=== PATIENT | female | born 1935 | race Caucasian/White ===

== ENCOUNTER 2016-12-06 00:15 | Inpatient (IN) | payer MEDICARE, OTHER ==
[~2016-12-06] VITALS: Ht 134.6 cm; Wt 45.4 kg
[2016-12-06 00:51] LABS: *BILIRUBIN,URIN NEGATIVE (NEGATIVE); *BLOOD, URINE NEGATIVE (NEGATIVE); *CLARITY,URINE CLEAR (CLEAR); *COLOR,URINE YELLOW (YELLOW); *KETONES,URINE NEGATIVE (NEGATIVE); *PROTEIN,URINE 2+ (NEGATIVE); *UROBILINOGEN,URINE 0.2 E.U./dl (NORMAL); LEUKOCYTE ESTERASE ,URINE 1+ (NEGATIVE); NITRITE, URINE NEGATIVE (NEGATIVE); PH,URINE 5.5 (5.0-8.0); UGLUCOSE NEGATIVE (NEGATIVE)
[2016-12-06] MEDS ORDERED: SENN-167 PO (00:51)
[2016-12-06] MEDS ORDERED: AMIN30LI27 PO (00:51)
[2016-12-06] MEDS ORDERED: METO50TA3 PO (00:51)
[2016-12-06] MEDS ORDERED: ACET-2154 PO (00:51)
[2016-12-06] MEDS ORDERED: LACT1CAP61 PO (00:51)
[2016-12-06] MEDS ORDERED: CYAN10009 PO (00:51)
[2016-12-06] MEDS ORDERED: TEMA7.5C PO (00:51)
[2016-12-06] MEDS ORDERED: MAGN400O6 PO (00:51)
[2016-12-06] MEDS ORDERED: MIRT15TA PO (00:51)
[2016-12-06] MEDS ORDERED: ALBU0.63 IH (00:51)
[2016-12-06] MEDS ORDERED: QUET25TA PO (00:51)
[2016-12-06] MEDS ORDERED: BISA-79 PO (00:51)
[2016-12-06] MEDS ORDERED: MULT1TAB11 PO (00:51)
[2016-12-06] MEDS ORDERED: IPRA3AMP IH (00:51)
[2016-12-06] MEDS ORDERED: DOCU-141 PO (00:51)
[2016-12-06] MEDS ORDERED: NA P133E RC (00:51)
[2016-12-06] MEDS ORDERED: MAG355OR18 PO (00:51)
[2016-12-06 00:54] LABS: BASOPHILS % (AUTO) 0.3 % (0.0-2.0); EOSINOPHILS # (AUTO) 0.1 K/uL (0.0-0.7); HEMATOCRIT 41.3 % (37-47); HEMOGLOBIN 13.2 G/DL (12.0-16.0); LYMPHOCYTES # (AUTO) 1.2 K/UL (0.8-4.8); LYMPHOCYTES % (AUTO) 15.3 % (20.5-51.5); MEAN CORPUSCULAR HEMOGLOBIN 24.1 UUG (27.0-31.0); MEAN CORPUSCULAR HGB CONC 32 g/dL (32.0-37.0); MEAN CORPUSCULAR VOLUME 75.4 FL (81.0-99.0); MONOCYTES # (AUTO) 0.5 K/UL (0.1-1.30); MONOCYTES % (AUTO) 6.3 % (0.0-11.0); NEUTROPHILS # (AUTO) 6.1 K/UL (1.8-8.9); NEUTROPHILS % (AUTO) 77.1 % (38.5-71.5); PLATELET COUNT (AUTO) 328 K/UL (150-450); RED BLOOD CELL COUNT(AUTO) 5.48 MIL/UL (4.2-5.4); WHITE BLOOD COUNT (AUTO) 7.9 K/UL (4.0-11.2)
[2016-12-06 00:58] LABS: *AMPHETAMINE, URINE NEGATIVE (NEGATIVE); *BARBITURATE, URINE NEGATIVE (NEGATIVE); *CANNABINOID, URINE NEGATIVE (NEGATIVE); *COCCAINE, URINE NEGATIVE (NEGATIVE); *OPIATE, URINE NEGATIVE (NEGATIVE); *PHENCYCLIDINE SCREEN,URINE NEGATIVE (NEGATIVE)
--- NOTE | 2016-12-06 01:00 | NUR ---
Attempted to check patient belongings for inventory, patient refused for staff to check 5 purple bags full of belongings. increasingly agitated. Education provided, attempted x3. Patient still refused, noted with screaming episodes.
[2016-12-06 01:04] LABS: CARBON DIOXIDE 27 mmol/L (21-32); CHLORIDE 105 mmol/L (98-107); CREATININE 1.1 mg/dL (0.6-1.3); GLUCOSE 109 mg/dL (74-106); UREA NITROGEN, BLOOD 29 mg/dL (7-18)
[2016-12-06 01:06] LABS: RBC,URINE 0-3 /HPF (0-3)
[2016-12-06 01:07] LABS: BACTERIA,URINE FEW /HPF (NONE SEEN); SQUAMOUS EPITHELIAL CELL,UR FEW /HPF (NONE SEEN); WBC,URINE 20-50 /HPF (0-3)
[2016-12-06 01:08] LABS: ETHANOL < 3 MG/DL (0-0)
[2016-12-06 01:09] LABS: ALANINE AMINOTRANSFERASE 16 U/L (14-59); ALKALINE PHOSPHATASE 75 U/L (50-136); ASPARTATE AMINOTRANSFERASE 16 U/L (15-37); BILIRUBIN,DIRECT 0.1 mg/dL (0.0-0.2); BILIRUBIN,TOTAL 0.4 mg/dL (0.2-1.0); TOTAL PROTEIN, SERUM 8.2 g/dL (6.4-8.2)
[2016-12-06 01:16] LABS: ACETAMINOPHEN < 2.0 ug/mL (10-30)
--- NOTE | 2016-12-06 01:25 | NUR ---
Patient cleared by Dr Waite for MHU admission.
[2016-12-06] MEDS ORDERED: CEPHALEXIN MONOHYDRATE 500 MG CAPSULE PO ONE (01:30)
--- NOTE | 2016-12-06 01:36 | NUR ---
Confirmed U medical clearance with MD, per MD patient is cleared. No further concern noted.
[2016-12-06] MEDS ORDERED: CEPHALEXIN MONOHYDRATE 500 MG CAPSULE ONE (01:37)
--- NOTE | 2016-12-06 01:46 | NUR ---
Pt. admitted to MHU , under care of Dr. Valadez/[facility] MD Carcamo. Belongs List completed to best of ability due to increasing patient agitation. Patient has multiple episode of screaming and stating for staff to cease attempting to open belongings bags. 2 RN witnesses present during Episode. Aida Rn/Sb RN. MHU RN aware of patient BLE chronic wound, aware to complete photograph on admitting unit MHU per ER policy.
--- NOTE | 2016-12-06 02:30 | NUR ---
Admitted this 81 y/o female patient Dx. Psychosis. Awake alert, oriented & quiet, no SOB denies chest pain. Multiple shopping bags w/ personal belongings noted. Patient allowed the staff to open her belongings, have her bags checked & seen. See personal belonging list. Complaining of bilateral leg discomfort but refused to take pain medication. Assisted to the bathroom, sponge bath provided. Wound assessment done, bilateral leg wound noted. Patient is very cooperative w/ staff & care/treatment (see wound photograph in chart). Hydrogel applied & covered it w/ Imtiaz. For wound consult in AM. Kept patient comfortable. Will continue to monitor.
[2016-12-06] MEDS ORDERED: MAGNESIUM HYDROXIDE 30 ML LIQUID UDC PO PRN ×2 (02:45→13:45)
[2016-12-06] MEDS ORDERED: LORAZEPAM 0.5 MG TABLET PO PRN (02:45)
[2016-12-06] MEDS ORDERED: ACETAMINOPHEN 325 MG TABLET PO PRN ×2 (02:45→13:45)
[2016-12-06] MEDS ORDERED: TEMAZEPAM 7.5 MG CAPSULE PO PRN (02:45)
[2016-12-06] MEDS ORDERED: MAG HYDROX/AL HYDROX/SIMETH 30 ML LIQUID UDC PO PRN ×2 (02:45→13:45)
--- NOTE | 2016-12-06 06:17 | NUR ---
Patient remains asleep at this time. Safety observed.
--- NOTE | 2016-12-06 07:15 | NUR ---
Patient awake now & hyperverbal, complaining of her big diaper she's wearing on. Report given to day shift RN.
[2016-12-06 07:30] VITALS: BP 134/72
--- NOTE | 2016-12-06 07:39 | NUR ---
Latest accucheck 143 post orange juice intake. Patient not happy at this time.
--- NOTE | 2016-12-06 11:54 | NUR ---
Initial discharge instructions: Pt resides at [facility] [[address] [place], [place]].Spoke with Michael at the facility who stated they are unsure if the pt may return.Per pt,she would like to placed at an assisted living facility,however she receives a low amount of SSI.Pt declined for daughter,Rosemary Santacruz [phone] to be contacted at this time.SW will speak with pt and MD regarding appropriate discharge plans.SW will form a safe and proper discharge.
[2016-12-06] MEDS ORDERED: FLEET ENEMA 133 ML BOTTLE RC PRN (13:45)
[2016-12-06] MEDS ORDERED: BISACODYL 5 MG TABLET.DR PO PRN (13:45)
[2016-12-06] MEDS ORDERED: IPRATROPIUM BROMIDE 0.5 MG/2.5 ML NEBU NEB PRN (14:00)
[2016-12-06] MEDS ORDERED: ALBUTEROL SULFATE 1.25 MG/3 ML NEBU NEB PRN (14:00)
[2016-12-06 16:01] VITALS: BP 123/70
[2016-12-06] MEDS: DOCUSATE SODIUM 100 MG CAPSULE PO SCH (17:00)
[2016-12-06] MEDS: PROTEIN SUPPLEMENT (PROSTAT) 30 ML LIQUID PO SCH (17:00)
[2016-12-06] MEDS ORDERED: Medication Not On Formulary EA (Amino Acids/Protein Hydrolys (Pro-Stat Sugar Free Liquid PO SCH (17:00)
[2016-12-06] MEDS: OLANZAPINE ZYDIS 5 MG TAB.RAPDIS PO SCH (17:00)
[2016-12-06 20:00] VITALS: BP 153/91
[2016-12-06] MEDS: SENNOSIDES 1 TABLET PO SCH (20:58)
[2016-12-06] MEDS: METOPROLOL TARTRATE 50 MG TABLET PO SCH (20:58)
[2016-12-07 07:30] VITALS: BP 117/82
--- NOTE | 2016-12-07 07:41 | NUR ---
GPS/RN- Patient received sitting up in chair in her room, alert and oriented to self and place. irritable , guarded. patient redirected, easily agitated. continue to monitor
[2016-12-07] MEDS: PROTEIN SUPPLEMENT (PROSTAT) 30 ML LIQUID PO SCH ×2 (08:00→17:00)
[2016-12-07] MEDS: CYANOCOBALAMIN 1,000 MCG TABLET PO SCH (09:00)
[2016-12-07] MEDS: MULTIVIT, IRON, MIN NO. 8, FA TABLET PO SCH (09:00)
[2016-12-07] MEDS: OLANZAPINE ZYDIS 5 MG TAB.RAPDIS PO SCH ×2 (09:00→17:00)
[2016-12-07] MEDS: DOCUSATE SODIUM 100 MG CAPSULE PO SCH ×2 (09:00→17:00)
[2016-12-07] MEDS ORDERED: Medication Not On Formulary EA (Multivitamins W-Minerals (Multivitamin With Minerals) 1 PO SCH (09:00)
[2016-12-07] MEDS: ACIDOPHILUS/BULGARICUS CHEW TAB PO SCH (09:00)
[2016-12-07] MEDS ORDERED: Medication Not On Formulary EA (Lactobacillus Acidophilus (Acidophilus) 1 EACH) PO SCH (09:00)
[2016-12-07] MEDS: METOPROLOL TARTRATE 50 MG TABLET PO SCH ×2 (09:59→20:29)
--- NOTE | 2016-12-07 10:35 | NUR ---
UR Note: Received voicemail from CM. Sangeeta Cuenca [phone] with [employer] [facility] stating patient has been authorized 3 days [12/08/16-12/10/16]. Clinical review is due on Saturday12/10/16. Authorization [id number]
--- NOTE | 2016-12-07 13:25 | NUR ---
WOUND CARE CONSULT: PT PRESENTS WITH HEALING ULCERS TO BILATERAL LOWER LEGS, PRESENT ON ADMISSION. RECOMMENDATIONS MADE FOR WOUND CARE. DISCUSSED WITH NURSING STAFF. ELEAZAR SCORE IS 19. WILL SEE PRN. BOWER IN AGREEMENT WITH PLAN OF CARE. Addendum: 12/07/16 at 1326 by SOHA HEWITT RN Amended: Links added.
[2016-12-07 16:00] VITALS: BP 108/78
[2016-12-07 20:00] VITALS: BP 109/75
[2016-12-07] MEDS: SENNOSIDES 1 TABLET PO SCH (20:29)
--- NOTE | 2016-12-08 06:17 | NUR ---
GPS: REMAIN UNCOOPERATIVE WITH MEDS AND CARE,SLEPT 07:30 HRS THROUGH THE NIGHT.CONTINUE PLAN OF CARE.
[2016-12-08] MEDS: PROTEIN SUPPLEMENT (PROSTAT) 30 ML LIQUID PO SCH ×2 (08:00→17:00)
[2016-12-08 08:42] VITALS: BP 124/91
[2016-12-08] MEDS: ACIDOPHILUS/BULGARICUS CHEW TAB PO SCH (08:44)
[2016-12-08] MEDS: DOCUSATE SODIUM 100 MG CAPSULE PO SCH ×2 (08:44→17:00)
[2016-12-08] MEDS: METOPROLOL TARTRATE 50 MG TABLET PO SCH ×2 (08:45→20:26)
[2016-12-08] MEDS: CYANOCOBALAMIN 1,000 MCG TABLET PO SCH (08:45)
[2016-12-08] MEDS: MULTIVIT, IRON, MIN NO. 8, FA TABLET PO SCH (08:45)
[2016-12-08] MEDS: OLANZAPINE ZYDIS 5 MG TAB.RAPDIS PO SCH ×2 (08:45→17:00)
--- NOTE | 2016-12-08 09:43 | NUR ---
GPS/RN- Recvd fax from [facility], auth for treatment from 12/08/2016-12/10/2016,auth # [id number].
[2016-12-08 16:00] VITALS: BP 121/74
[2016-12-08] MEDS: SENNOSIDES 1 TABLET PO SCH (20:26)
[2016-12-08 20:48] VITALS: BP 135/79
--- NOTE | 2016-12-09 06:35 | NUR ---
GPS: REMAIN UNCOOPERATIVE WITH MEDS AND CARE. SLEPT 07:30 HRS THROUGH THE NIGHT.
[2016-12-09 07:30] VITALS: BP 124/74
[2016-12-09] MEDS: PROTEIN SUPPLEMENT (PROSTAT) 30 ML LIQUID PO SCH ×2 (08:00→17:00)
[2016-12-09] MEDS: MULTIVIT, IRON, MIN NO. 8, FA TABLET PO SCH (09:00)
[2016-12-09] MEDS: METOPROLOL TARTRATE 50 MG TABLET PO SCH ×2 (09:00→21:03)
[2016-12-09] MEDS: CYANOCOBALAMIN 1,000 MCG TABLET PO SCH (09:00)
[2016-12-09] MEDS: ACIDOPHILUS/BULGARICUS CHEW TAB PO SCH (09:00)
[2016-12-09] MEDS: DOCUSATE SODIUM 100 MG CAPSULE PO SCH ×2 (09:00→17:00)
[2016-12-09] MEDS: OLANZAPINE ZYDIS 5 MG TAB.RAPDIS PO SCH ×2 (09:00→17:00)
[2016-12-09 16:00] VITALS: BP 125/64
[2016-12-09] MEDS: SENNOSIDES 1 TABLET PO SCH ×3 (21:00→21:08)
[2016-12-09 22:54] VITALS: BP 128/67
[2016-12-10 07:30] VITALS: BP 122/76
[2016-12-10] MEDS: PROTEIN SUPPLEMENT (PROSTAT) 30 ML LIQUID PO SCH ×2 (08:00→17:00)
[2016-12-10] MEDS: OLANZAPINE ZYDIS 5 MG TAB.RAPDIS PO SCH ×3 (09:00→17:00)
[2016-12-10] MEDS: MULTIVIT, IRON, MIN NO. 8, FA TABLET PO SCH (09:13)
[2016-12-10] MEDS: CYANOCOBALAMIN 1,000 MCG TABLET PO SCH (09:13)
[2016-12-10] MEDS: DOCUSATE SODIUM 100 MG CAPSULE PO SCH ×2 (09:13→17:00)
[2016-12-10] MEDS: ACIDOPHILUS/BULGARICUS CHEW TAB PO SCH (09:13)
[2016-12-10] MEDS: METOPROLOL TARTRATE 50 MG TABLET PO SCH ×2 (09:14→20:16)
[2016-12-10] MEDS: SERTRALINE HCL 50 MG TABLET PO SCH (11:45)
--- NOTE | 2016-12-10 13:37 | NUR ---
UR Note: Received voicemail from CM. Sangeeta Cuenca [phone] with [employer] stating patient has been authorized 3 days [12/10/16-12/12/16]. Clinical review is due on Saturday12/12/16. Authorization [id number]
[2016-12-10 16:27] VITALS: BP 142/82
[2016-12-10] MEDS: HALOPERIDOL 1 MG TABLET PO SCH (17:00)
[2016-12-10] MEDS: SENNOSIDES 1 TABLET PO SCH ×3 (20:16→20:18)
[2016-12-10 20:27] VITALS: BP 121/82
[2016-12-11 07:30] VITALS: BP 126/79
[2016-12-11] MEDS: PROTEIN SUPPLEMENT (PROSTAT) 30 ML LIQUID PO SCH ×2 (08:00→17:00)
[2016-12-11] MEDS: SERTRALINE HCL 50 MG TABLET PO SCH (09:00)
[2016-12-11] MEDS: METOPROLOL TARTRATE 50 MG TABLET PO SCH ×2 (09:00→20:33)
[2016-12-11] MEDS: CYANOCOBALAMIN 1,000 MCG TABLET PO SCH (09:00)
[2016-12-11] MEDS: MULTIVIT, IRON, MIN NO. 8, FA TABLET PO SCH (09:00)
[2016-12-11] MEDS: HALOPERIDOL 1 MG TABLET PO SCH ×3 (09:00→17:00)
[2016-12-11] MEDS: DOCUSATE SODIUM 100 MG CAPSULE PO SCH ×2 (09:00→17:00)
[2016-12-11] MEDS: OLANZAPINE ZYDIS 5 MG TAB.RAPDIS PO SCH (09:00)
[2016-12-11] MEDS: ACIDOPHILUS/BULGARICUS CHEW TAB PO SCH (09:00)
[2016-12-11] MEDS ORDERED: BENZTROPINE MESYLATE 2 MG/2 ML AMPUL IM PRN (10:30)
[2016-12-11] MEDS: BENZTROPINE MESYLATE 0.5 MG TABLET PO SCH ×2 (10:30→17:00)
[2016-12-11] MEDS: HALOPERIDOL LACTATE 5 MG/1 ML VIAL IM PRN ×2 (10:55→18:27)
[2016-12-11 16:58] VITALS: BP 128/79
[2016-12-11 20:27] VITALS: BP 140/67
[2016-12-11] MEDS: SENNOSIDES 1 TABLET PO SCH (20:32)
--- NOTE | 2016-12-12 06:56 | NUR ---
GPS: REMAIN UNCOOPERATIVE WITH CARE, VERBALLY ABUSIVE TO STAFF. COMPLIANT WITH MEDS. SLEPT 09:30 HRS THROUGH THE NIGHT.
[2016-12-12 07:30] VITALS: BP 142/75
[2016-12-12] MEDS: PROTEIN SUPPLEMENT (PROSTAT) 30 ML LIQUID PO SCH ×2 (08:00→16:48)
[2016-12-12] MEDS: ACIDOPHILUS/BULGARICUS CHEW TAB PO SCH (09:00)
[2016-12-12] MEDS: CYANOCOBALAMIN 1,000 MCG TABLET PO SCH (09:00)
[2016-12-12] MEDS: METOPROLOL TARTRATE 50 MG TABLET PO SCH ×2 (09:00→21:18)
[2016-12-12] MEDS: DOCUSATE SODIUM 100 MG CAPSULE PO SCH ×2 (09:00→16:48)
[2016-12-12] MEDS: MULTIVIT, IRON, MIN NO. 8, FA TABLET PO SCH (09:00)
[2016-12-12] MEDS: SERTRALINE HCL 50 MG TABLET PO SCH (09:15)
[2016-12-12] MEDS: BENZTROPINE MESYLATE 0.5 MG TABLET PO SCH ×2 (09:15→16:47)
[2016-12-12] MEDS: HALOPERIDOL 1 MG TABLET PO SCH ×2 (09:16→16:47)
[2016-12-12] MEDS: busPIRone 5 MG TABLET PO SCH ×2 (10:00→16:47)
[2016-12-12 16:00] VITALS: BP 141/75
[2016-12-12 20:10] VITALS: BP 126/67
[2016-12-12] MEDS: SENNOSIDES 1 TABLET PO SCH (21:00)
[2016-12-13 07:30] VITALS: BP 139/67
[2016-12-13] MEDS: CYANOCOBALAMIN 1,000 MCG TABLET PO SCH (08:49)
[2016-12-13] MEDS: METOPROLOL TARTRATE 50 MG TABLET PO SCH ×2 (08:51→21:59)
[2016-12-13] MEDS: HALOPERIDOL 1 MG TABLET PO SCH ×3 (08:53→19:00)
[2016-12-13] MEDS: SERTRALINE HCL 50 MG TABLET PO SCH (08:53)
[2016-12-13] MEDS: DOCUSATE SODIUM 100 MG CAPSULE PO SCH ×2 (08:54→17:00)
[2016-12-13] MEDS: busPIRone 5 MG TABLET PO SCH ×2 (08:54→17:35)
[2016-12-13] MEDS: BENZTROPINE MESYLATE 0.5 MG TABLET PO SCH ×3 (08:55→19:00)
[2016-12-13] MEDS: MULTIVIT, IRON, MIN NO. 8, FA TABLET PO SCH (08:56)
[2016-12-13] MEDS: PROTEIN SUPPLEMENT (PROSTAT) 30 ML LIQUID PO SCH ×2 (08:57→17:00)
[2016-12-13] MEDS: ACIDOPHILUS/BULGARICUS CHEW TAB PO SCH (09:00)
--- NOTE | 2016-12-13 15:14 | NUR ---
UR Note:Received voicemail from Sangeeta [phone] with [employer] stating patient has been authorized 4 days [12/13/16-12/16/16]. Clinical review is due on Saturday12/17/16. Authorization [id number]
[2016-12-13 15:35] VITALS: BP 139/69
--- NOTE | 2016-12-13 17:15 | NUR ---
Called [facility] in regard to patient wounds. Patient seen by Suly on 12/07/16 and wound care implemented. Patient needs to follow up and update in order to be placed upon discharge.
--- NOTE | 2016-12-13 19:00 | NUR ---
Pt. sat up in chair all day. Alert and Oriented x3. Pt. declined 1700 Cogentin po and Haldol po. Attempted to adm. IM and Pt. refused stating will take Cogentin and Haldol p.o. adm. Pt. did take her PO medication. Pt. up to BR indep. with walker asst. no falls today. Pt eats all meals sitting up in chair refusing to go out of room. Pt. declined drsg. change to Perez. lower extremites.No distress noted.Pt. answers questions asked but can be challenging.
[2016-12-13 20:33] VITALS: BP 125/73
[2016-12-13] MEDS: SENNOSIDES 1 TABLET PO SCH (21:00)
[2016-12-14 07:30] VITALS: BP 124/74
--- NOTE | 2016-12-14 08:28 | NUR ---
Machining Manager SW faxed to the following facilities for placement 1.) [facility] 2.) [facility] 3[facility] [place] 5.) [facility] 6.) [facility] 7.)[facility]
[2016-12-14] MEDS: CYANOCOBALAMIN 1,000 MCG TABLET PO SCH ×2 (09:00→09:39)
[2016-12-14] MEDS: ACIDOPHILUS/BULGARICUS CHEW TAB PO SCH ×2 (09:00→09:37)
[2016-12-14] MEDS: MULTIVIT, IRON, MIN NO. 8, FA TABLET PO SCH (09:00)
[2016-12-14] MEDS: DOCUSATE SODIUM 100 MG CAPSULE PO SCH ×2 (09:00→17:34)
[2016-12-14] MEDS: busPIRone 5 MG TABLET PO SCH ×2 (09:38→17:34)
[2016-12-14] MEDS: BENZTROPINE MESYLATE 0.5 MG TABLET PO SCH ×2 (09:38→17:00)
[2016-12-14] MEDS: METOPROLOL TARTRATE 50 MG TABLET PO SCH ×2 (09:39→21:00)
[2016-12-14] MEDS: HALOPERIDOL 1 MG TABLET PO SCH ×2 (09:39→17:00)
[2016-12-14] MEDS: SERTRALINE HCL 50 MG TABLET PO SCH (09:39)
[2016-12-14] MEDS: PROTEIN SUPPLEMENT (PROSTAT) 30 ML LIQUID PO SCH ×2 (11:00→17:00)
--- NOTE | 2016-12-14 11:26 | NUR ---
0900: PT REFUSED FLORANEX AND VIT B12. OFFERED X2. EXPLAINED RISK AND BENEFITS. PT CONTINUES TO REFUSED, STATED " I DON'T WANT IT".
--- NOTE | 2016-12-14 12:20 | NUR ---
WOUND CARE FOLLOW UP: PT SEEN FOR RE-EVALUATION OF RT AND LEFT LOWER LEG VENOUS ULCERS, PRESENT ON ADMISSION. NO SIGN OF INFECTION NOTED. PT SITTING IN CHAIR. LEGS ARE SWOLLEN. RECOMMEND CONTINUE PRESENT TREATMENT AND ELEVATE LEGS. DISCUSSED WITH NURSING STAFF. WILL SEE PRN. BOWER IN AGREEMENT WITH PLAN OF CARE. Addendum: 12/14/16 at 1222 by SOHA HEWITT RN Amended: Links added.
[2016-12-14] MEDS ORDERED: HALOPERIDOL LACTATE 5 MG/1 ML VIAL IM PRN (13:45)
--- NOTE | 2016-12-14 15:37 | NUR ---
GPS RN NOTE WOUND CARE GIVEN ORDERED. PT TOLERATED WELL. NO DISCOMFORT OR PAIN REPORTED.
[2016-12-14 16:44] VITALS: BP 111/63
[2016-12-14] MEDS ORDERED: HALOPERIDOL 1 MG TABLET PO SCH (20:00)
[2016-12-14 20:34] VITALS: BP 113/61
[2016-12-14] MEDS: SENNOSIDES 1 TABLET PO SCH (21:00)
[2016-12-15] MEDS: PROTEIN SUPPLEMENT (PROSTAT) 30 ML LIQUID PO SCH ×2 (08:00→17:00)
[2016-12-15 08:30] VITALS: BP 125/64
[2016-12-15] MEDS: SERTRALINE HCL 50 MG TABLET PO SCH (08:39)
[2016-12-15] MEDS: HALOPERIDOL 1 MG TABLET PO SCH ×2 (08:40→17:10)
[2016-12-15] MEDS: BENZTROPINE MESYLATE 0.5 MG TABLET PO SCH ×2 (08:44→17:09)
[2016-12-15] MEDS: busPIRone 5 MG TABLET PO SCH ×2 (08:44→17:09)
[2016-12-15] MEDS: DOCUSATE SODIUM 100 MG CAPSULE PO SCH ×2 (08:49→17:00)
[2016-12-15] MEDS: MULTIVIT, IRON, MIN NO. 8, FA TABLET PO SCH (08:50)
[2016-12-15] MEDS: ACIDOPHILUS/BULGARICUS CHEW TAB PO SCH (08:50)
[2016-12-15] MEDS: METOPROLOL TARTRATE 50 MG TABLET PO SCH ×2 (08:51→20:31)
[2016-12-15] MEDS: CYANOCOBALAMIN 1,000 MCG TABLET PO SCH (08:51)
[2016-12-15 16:04] VITALS: BP 105/51
[2016-12-15] MEDS: HALOPERIDOL 2 MG TABLET PO SCH (20:00)
[2016-12-15] MEDS ORDERED: HALOPERIDOL 1 MG TABLET PO SCH (20:00)
[2016-12-15 20:08] VITALS: BP 113/66
[2016-12-15] MEDS: SENNOSIDES 1 TABLET PO SCH (20:36)
[2016-12-16 07:30] VITALS: BP 156/74
[2016-12-16] MEDS: PROTEIN SUPPLEMENT (PROSTAT) 30 ML LIQUID PO SCH ×2 (08:00→17:00)
[2016-12-16] MEDS: HALOPERIDOL 1 MG TABLET PO SCH ×2 (08:58→17:38)
[2016-12-16] MEDS: busPIRone 5 MG TABLET PO SCH ×2 (08:59→17:38)
[2016-12-16] MEDS: SERTRALINE HCL 50 MG TABLET PO SCH (08:59)
[2016-12-16] MEDS: BENZTROPINE MESYLATE 0.5 MG TABLET PO SCH ×2 (08:59→17:38)
[2016-12-16] MEDS: CYANOCOBALAMIN 1,000 MCG TABLET PO SCH (09:00)
[2016-12-16] MEDS: ACIDOPHILUS/BULGARICUS CHEW TAB PO SCH (09:00)
[2016-12-16] MEDS: METOPROLOL TARTRATE 50 MG TABLET PO SCH ×2 (09:00→20:00)
[2016-12-16] MEDS: MULTIVIT, IRON, MIN NO. 8, FA TABLET PO SCH (09:00)
[2016-12-16] MEDS: DOCUSATE SODIUM 100 MG CAPSULE PO SCH ×2 (09:00→17:00)
[2016-12-16] MEDS ORDERED: HALOPERIDOL DECANOATE 50 MG/1 ML AMPUL IM ONE (12:15)
[2016-12-16 15:57] VITALS: BP 111/62
[2016-12-16 19:48] VITALS: BP 130/68
[2016-12-16] MEDS: HALOPERIDOL 2 MG TABLET PO SCH (20:01)
[2016-12-16] MEDS: SENNOSIDES 1 TABLET PO SCH (20:07)
--- NOTE | 2016-12-16 21:23 | NUR ---
PATIENT RECEIVED IN ROOM AWAKE UP IN CHAIR. PATIENT COOPERATIVE UPON APPROACH IN NO APPARENT DISTRESS, WILL CONTINUE TO MONITOR. PATIENT COOPERATIVE WITH HS MEDICATION, REFUSED ONLY SENOKOT. NO AGGRESSIVE OR COMBATIVE BEHAVIOR NOTED WILL CONTINUE TO MONITOR. PATIENT IS UNPREDICTABLE AND LABILE WITH STAFF AT TIMES.
[2016-12-17 07:30] VITALS: BP 149/71
[2016-12-17] MEDS: PROTEIN SUPPLEMENT (PROSTAT) 30 ML LIQUID PO SCH ×2 (07:56→16:15)
[2016-12-17] MEDS: ACIDOPHILUS/BULGARICUS CHEW TAB PO SCH (08:00)
[2016-12-17] MEDS: METOPROLOL TARTRATE 50 MG TABLET PO SCH ×2 (08:00→20:41)
[2016-12-17] MEDS: HALOPERIDOL 1 MG TABLET PO SCH ×2 (08:00→16:11)
[2016-12-17] MEDS: BENZTROPINE MESYLATE 0.5 MG TABLET PO SCH ×2 (08:00→16:11)
[2016-12-17] MEDS: busPIRone 5 MG TABLET PO SCH ×2 (08:00→16:11)
[2016-12-17] MEDS: SERTRALINE HCL 50 MG TABLET PO SCH (08:00)
[2016-12-17] MEDS: CYANOCOBALAMIN 1,000 MCG TABLET PO SCH (08:00)
[2016-12-17] MEDS: MULTIVIT, IRON, MIN NO. 8, FA TABLET PO SCH (08:05)
[2016-12-17] MEDS: DOCUSATE SODIUM 100 MG CAPSULE PO SCH ×2 (08:05→16:15)
[2016-12-17 15:34] VITALS: BP 124/59
--- NOTE | 2016-12-17 16:43 | NUR ---
UR Note: Called Sangeeta SMITH [phone] with [facility] and left her a voicemail informing her of the patient's current status with a request that she call back at 1:00 pm. ROSS has not received a call back yet. ROSS called again at at 4:42 pm to leave clinicals for continued stay however Sangeeta's voicemail box was full and could not accept any messages. Authorization [id number]
--- NOTE | 2016-12-17 16:46 | NUR ---
Industry Operations Investigator LYNDA Escalante and ROSS Mcneill from [facility] [[address].[place], [place]] came to assess the patient today at 4:30 pm. They stated that they will be returning to the facility to speak with their lease administrator and determine if they will be accepting the patient back. ROSS awaiting call back from the facility.
[2016-12-17] MEDS: HALOPERIDOL 2 MG TABLET PO SCH (20:15)
[2016-12-17] MEDS: SENNOSIDES 1 TABLET PO SCH (20:41)
[2016-12-17 20:50] VITALS: BP 117/59
--- NOTE | 2016-12-17 22:11 | NUR ---
PATIENT RECEIVED IN ROOM AWAKE UP IN CHAIR. PATIENT COOPERATIVE UPON APPROACH IN NO APPARENT DISTRESS, WILL CONTINUE TO MONITOR. PATIENT COOPERATIVE WITH HS MEDICATION, REFUSED ONLY SENNOKOT AND LOPRESSOR BP 117/59 HR 60. NO AGGRESSIVE OR COMBATIVE BEHAVIOR NOTED WILL CONTINUE TO MONITOR. PATIENT IS UNPREDICATABLE AND LABILE WITH STAFF AT TIMES.
[2016-12-18 07:30] VITALS: BP 152/73
[2016-12-18] MEDS: busPIRone 5 MG TABLET PO SCH ×2 (08:47→17:03)
[2016-12-18] MEDS: PROTEIN SUPPLEMENT (PROSTAT) 30 ML LIQUID PO SCH ×2 (08:47→17:11)
[2016-12-18] MEDS: HALOPERIDOL 1 MG TABLET PO SCH ×2 (08:48→17:03)
[2016-12-18] MEDS: SERTRALINE HCL 50 MG TABLET PO SCH (08:48)
[2016-12-18] MEDS: BENZTROPINE MESYLATE 0.5 MG TABLET PO SCH ×2 (08:48→17:03)
[2016-12-18] MEDS: CYANOCOBALAMIN 1,000 MCG TABLET PO SCH (08:48)
[2016-12-18] MEDS: DOCUSATE SODIUM 100 MG CAPSULE PO SCH ×2 (08:56→17:00)
[2016-12-18] MEDS: ACIDOPHILUS/BULGARICUS CHEW TAB PO SCH (08:56)
[2016-12-18] MEDS: METOPROLOL TARTRATE 50 MG TABLET PO SCH ×2 (08:57→20:36)
[2016-12-18] MEDS: MULTIVIT, IRON, MIN NO. 8, FA TABLET PO SCH (08:57)
[2016-12-18 15:30] VITALS: BP 142/61
[2016-12-18 19:30] VITALS: BP 122/68
[2016-12-18] MEDS: HALOPERIDOL 2 MG TABLET PO SCH (20:12)
[2016-12-18] MEDS: SENNOSIDES 1 TABLET PO SCH (20:15)
[2016-12-19 07:30] VITALS: BP 140/76
[2016-12-19] MEDS: PROTEIN SUPPLEMENT (PROSTAT) 30 ML LIQUID PO SCH ×2 (08:00→17:12)
[2016-12-19] MEDS: DOCUSATE SODIUM 100 MG CAPSULE PO SCH ×2 (09:00→17:00)
[2016-12-19] MEDS: ACIDOPHILUS/BULGARICUS CHEW TAB PO SCH (09:00)
[2016-12-19] MEDS: MULTIVIT, IRON, MIN NO. 8, FA TABLET PO SCH (09:00)
[2016-12-19] MEDS: HALOPERIDOL 1 MG TABLET PO SCH ×2 (09:05→17:08)
[2016-12-19] MEDS: BENZTROPINE MESYLATE 0.5 MG TABLET PO SCH ×2 (09:06→17:08)
[2016-12-19] MEDS: METOPROLOL TARTRATE 50 MG TABLET PO SCH (09:06)
[2016-12-19] MEDS: busPIRone 5 MG TABLET PO SCH ×2 (09:06→17:08)
[2016-12-19] MEDS: CYANOCOBALAMIN 1,000 MCG TABLET PO SCH (09:07)
[2016-12-19] MEDS: SERTRALINE HCL 50 MG TABLET PO SCH (09:07)
[2016-12-19 16:00] VITALS: BP 146/71
--- NOTE | 2016-12-19 16:11 | NUR ---
DC Note: Patient will be discharged today to [facility] [[address] [place], [address]] via ambulance at 5:00 pm. Please schedule an ambulance for the patient. Bienvenido with [facility] [ / Fx: [phone]] has arranged placement for the patient. Spoke with Christi [phone] the clinical product manager at the [facility] and [facility] who stated she would accept the patient today. Patient is aware and agreeable with discharge plans. Patient will follow-up with (Industrial Truck Driver) and Dr.Lusine Taylor (Psychiatrist) at the facility. A home health order was faxed over to [facility] [[address] [place] [address]; [phone]/FX: ]. Addendum: 12/19/16 at 1630 by NEFTALI HAWKINS ROSS attempted to contact pt's daughter, Rosemary Santacruz [phone] but phone is out of service. ROSS attempted to find contact info in chart, however no information found.
--- NOTE | 2016-12-19 18:05 | NUR ---
1645 Called Dariela, jr. systems administrator of [facility] regarding patients medications to continue and both presc. mmedical and psychiatric , also emphasized that patient received haldol decanoete 12. 5 mg last December 16, 2016 and who ever is the psychiatrist following up th patient should be informed. Dariela, jr. systems administrator verbalized understanding. Patient will be picked up by ambulance at 1830.
--- NOTE | 2016-12-19 19:52 | NUR ---
NURSES NOTES:GPS AT APPROX. 1930 PATIENT WAS DISCHARGED FROM MHU IN STABLE CONDITION WITH NO COMPLAINS OF PAIN OF DISCOMFORT AND WITH ALL HER BELONGINGS. SHE LEFT VIA AMBULANCE AND WAS ACCOMPANIED BY 2 [facility]. FULL REPORT WAS GIVEN TO PARAMEDICS
== END 2016-12-19 19:30 | disposition home health service (06) | DRG 885 ==
LOC: ER 00:22 → GPS 01:26
PROVIDERS: ADMIT Psychiatry & Neurology Psychosomatic Medicine; ATTEND Internal Medicine
DX: F31.5 Bipolar disorder, current episode depressed, severe, with psychotic features (principal); F01.50 Vascular dementia, unspecified severity, without behavioral disturbance, psychotic disturbance, mood disturbance, and anxiety; L97.829 Non-pressure chronic ulcer of other part of left lower leg with unspecified severity; L97.819 Non-pressure chronic ulcer of other part of right lower leg with unspecified severity; N39.0 Urinary tract infection, site not specified; Z91.14 Patient's other noncompliance with medication regimen; K21.9 Gastro-esophageal reflux disease without esophagitis; I87.2 Venous insufficiency (chronic) (peripheral); I48.91 Unspecified atrial fibrillation; J44.9 Chronic obstructive pulmonary disease, unspecified; I11.9 Hypertensive heart disease without heart failure; F20.9 Schizophrenia, unspecified; I25.10 Atherosclerotic heart disease of native coronary artery without angina pectoris; E78.5 Hyperlipidemia, unspecified
CPT/HCPCS: 36415; 71010; 80307; 85025; 93005; 97161; A4663; G0480; G0480-TC; J0515; J1630; J1631